=== PATIENT | female | born 1960 | race Hispanic/Latino ===

== ENCOUNTER 2022-11-07 10:30 | Outpatient (CLI) | payer BC ==
[~2022-11-07 10:30] MED LIST: Iopamidol 300 61% 100 ML VIAL FS ONE
== END 2022-11-07 10:31 | disposition home or self-care (01) ==
LOC: CSHCT 10:30
PROVIDERS: ATTEND Family Medicine
DX: R31.29 Other microscopic hematuria (principal); N28.1 Cyst of kidney, acquired; K57.30 Diverticulosis of large intestine without perforation or abscess without bleeding; Z90.710 Acquired absence of both cervix and uterus
CPT/HCPCS: 74178

== ENCOUNTER 2022-12-19 10:34 | Outpatient (CLI) | payer BC | END 2022-12-19 10:35 | disposition home or self-care (01) | LOC: CSHMAMMO 10:34 | PROVIDERS: ATTEND Family Medicine | DX: Z12.31 Encounter for screening mammogram for malignant neoplasm of breast (principal) | CPT/HCPCS: 77063; 77067 ==